=== PATIENT | male | born 1975 | race Caucasian/White ===

== ENCOUNTER 2017-01-24 19:48 | Emergency (ER) | payer MEDICAID, OTHER ==
[~2017-01-24] VITALS: Wt 163.6 kg
[~2017-01-24 19:48] MED LIST: AZIT250T94 PO
[2017-01-24] MEDS ORDERED: ONDANSETRON (ODT) 4 MG TAB ODT STA (22:13)
[2017-01-24] MEDS ORDERED: ACETAMINOPHEN 500 MG TAB PO STA (22:13)
[2017-01-24] MEDS ORDERED: ONDA4TAB8 PO (22:28)
[2017-01-24] MEDS ORDERED: CIPR500T4 PO (22:28)
[2017-01-24] MEDS ORDERED: TYL500 PO (22:29)
[2017-01-24] MEDS ORDERED: LOPE2CAP PO (22:29)
[2017-01-24] MEDS ORDERED: LIDOCAINE/MYLANTA 40 ML BTL PO ONE (22:30)
[2017-01-24] MEDS ORDERED: FAMOTIDINE 20 MG TAB PO ONE (22:30)
[2017-01-24] MEDS ORDERED: LORA-441 PO (22:52)
--- NOTE | 2017-01-25 00:39 | ERD ---
ER Documentation Chief Complaint Date/Time DATE: 01/25/17 TIME: 00:36 Chief Complaint n/v/d, fever, kaminski, cough HPI This is a 41-year-old male that presents to the ER with nausea vomiting and diarrhea that started yesterday after he had [place] food. Patient also has a headache and fevers. He denies any recent travel. Vomiting is nonbilious nonbloody. There is no blood in the diarrhea. Patient is able to drink fluids , however he is unable to eat any food. Patient does complain of generalized abdominal pain which is worse whenever he needs to vomit or have a bowel movement. ROS 12 point review of systems was done, all negative except per HPI. Medications Home Meds Active Scripts Lorazepam* (Ativan*) 0.5 Mg Tablet, 0.5 MG PO Q8, #5 TAB Prov:VILMA READ 01/24/17 Loperamide Hcl* (Imodium*) 2 Mg Capsule, 2 MG PO .WITH EACH DIARRHEA Y for DIARRHEA for 3 Days, CAP MAX 16 mg/day Prov:VILMA READ 01/24/17 Acetaminophen* (Tylenol*) 500 Mg Tab, 500 MG PO Q4H Y for MILD PAIN LEVEL 1-3 for 3 Days, TAB Prov:VILMA READ 01/24/17 Ondansetron Hcl* (Zofran*) 4 Mg Tablet, 4 MG PO Q6H for NAUSEA AND/OR VOMITING, #30 TAB Prov:VILMA READ 01/24/17 Ciprofloxacin Hcl* (Ciprofloxacin Hcl*) 500 Mg Tablet, 500 MG PO BID for 3 Days , TAB Prov:VILMA READ 01/24/17 Azithromycin* (Zithromax*) 250 Mg Tablet, 250 MG PO .ZPACK DIRECTED, #6 TAB TAKE 500 MG (2 TABS) THE FIRST DAY THEN 250 MG (1 TAB) DAYS 2-5 Prov:TAM MEHTA DO 06/23/16 Allergies Allergies: Coded Allergies: No Known Allergy (Unverified , 06/23/16) PMhx/Soc History of Surgery: No Anesthesia Reaction: No Hx Neurological Disorder: No Hx Respiratory Disorders: No Hx Cardiac Disorders: No Hx Psychiatric Problems: Yes (anxiety) Hx Miscellaneous Medical Probl: No Hx Alcohol Use: No Hx Substance Use: No Hx Tobacco Use: No Physical Exam Vitals Vital Signs Date Time Temp Pulse Resp B/P Pulse Ox O2 Delivery O2 Flow Rate FiO2 01/24/17 20:26 98.8 91 20 141/90 98 Physical Exam GENERAL: The patient is well-developed, well-nourished, in no acute distress. NECK: Cervical spine is non tender with no step off. Supple, no nuchal rigidity HEENT: Atraumatic. Conjunctivae pink, no discharge. The oropharynx is clear with no erythema or exudates and the mucosa is moist. No signs of dehydration. RESPIRATORY: Clear to auscultation bilaterally. There are no rales, wheezes or rhonchi. HEART: Regular rate and rhythm. No murmurs, clicks, rubs or gallops. ABDOMEN: Soft, nontender, nondistended. Active bowel sounds in all 4 quadrants. No rebounding or guarding. Negative McBurney point tenderness. NEUROLOGIC: Alert and oriented. SKIN: There is no rash. The skin is warm and dry. Normal capillary refill. Results 24 hrs Current Medications Medications (Trade) Dose Ordered Sig/Elisabeth Route PRN Reason Start Time Stop Time Status Last Admin Dose Admin Ondansetron HCl (Zofran Odt) 8 mg ONCE STAT ODT 01/24/17 22:13 01/24/17 22:15 DC 01/24/17 22:46 Famotidine (Pepcid) 20 mg ONCE ONCE PO 01/24/17 22:30 01/24/17 22:31 DC 01/24/17 22:47 Miscellaneous Medication (Gi Cocktail (2)) 40 ml ONCE ONCE PO 01/24/17 22:30 01/24/17 22:31 DC 01/24/17 22:47 Acetaminophen (Tylenol Tab) 1,000 mg ONCE STAT PO 01/24/17 22:13 01/24/17 22:15 DC 01/24/17 22:46 Procedures/MDM Differential Diagnosis includes but is not limited to; Acute gastroenteritis, post-tussive vomiting, small bowel obstruction, appendicitis, DKA, ICH, meningitis. This is likely viral gastroenteritis versus food poisoning. Patient appears well hydrated and successfully tolerated PO challenge. Clinical suspicion for infectious etiology such as meningitis as patient appears nontoxic. Clinical suspicion for acute abdomen is low as physical examination is benign. Plan was discussed with patient they understand agree. Patient needs to follow up with PCP within 1-2 days, or return to ER if symptoms worsen. Departure Diagnosis: Primary Impression: Nausea vomiting and diarrhea Condition: Stable Patient Instructions: Food Poisoning Or Gastroenteritis (6Y-Adult) Additional Instructions: Call your primary care doctor TOMORROW for an appointment during the next 1-2 days.See the doctor sooner or return here if your condition worsens before your appointment time. VILMA READ Jan 25, 2017 00:39
== END 2017-01-24 23:10 | disposition home or self-care (01) ==
LOC: FTE 19:48
DX: R11.2 Nausea with vomiting, unspecified (principal); R19.7 Diarrhea, unspecified
CPT/HCPCS: 99284

== ENCOUNTER 2017-08-19 23:43 | Emergency (ER) | payer SELFPAY ==
[~2017-08-19] VITALS: Ht 170.2 cm; Wt 162.5 kg
[~2017-08-19 23:43] MED LIST changes: +CIPR500T4 PO; +LOPE2CAP PO; +LORA-441 PO; +ONDA4TAB8 PO; +TYL500 PO
[2017-08-19 23:45] VITALS: Ht 170.2 cm; Wt 162.5 kg
[2017-08-19] MEDS ORDERED: HALOPERIDOL 5 MG INJ IM STA (23:48)
[2017-08-20] MEDS ORDERED: DIPHENHYDRAMINE 50 MG INJ IM ONE
[2017-08-20] MEDS ORDERED: LORAZEPAM 2 MG INJ IM ONE
[2017-08-20] MEDS ORDERED: IBUPROFEN 600 MG TAB PO ONE (00:30)
--- NOTE | 2017-08-20 02:16 | RADRPT ---
PROCEDURE: XR Chest. CLINICAL INDICATION: Cough. TECHNIQUE: Single frontal chest x-ray. COMPARISON: 06/23/2016 FINDINGS: The cardiomediastinal silhouette is unremarkable. There is no congestive heart failure.. There is m ild right basilar probable atelectasis.. There is no pleural effusion. There is no pneumothorax. The osseous structures are unremarkable. IMPRESSION: Right basilar probable atelectasis. RPTAT: HMVK .Chris Adkins MD, Date Time Electronically viewed and signed by .Chris Adkins MD, on 08/20/2017 02:16 .K/
--- NOTE | 2017-08-20 02:18 | RADRPT ---
PROCEDURE: XR right Femur. CLINICAL INDICATION: Pain. TECHNIQUE: Four views of the right femur were obtained. COMPARISON: No prior studies are available for comparison. FINDINGS: There is no fracture. Joint relationships are maintained. Bone mineralization is within normal leong its. Soft tissues are unremarkable. IMPRESSION: 1. No acute abnormality. RPTAT: HMVK .Chris Adkins MD, MD Date Time Electronically viewed and signed by .Chris Adkins MD, on 08/20/2017 02:17 .K/
--- NOTE | 2017-08-20 02:20 | RADRPT ---
PROCEDURE: XR Lumbar Spine. CLINICAL INDICATION: Pain. TECHNIQUE: Three views of the lumbar spine are available for review COMPARISON: None available FINDINGS: No fracture is identified. There is maintenance of height of the vertebral bodies. Alignment is ma intained; there is no spondylolisthesis. Pedicles are intact. There is mild diffuse endplate hyper trophic changes lower thoracic spine and upper lumbar spine. Bony mineralization is within normal l imits. Soft tissues are unremarkable. IMPRESSION: Mild endplate degenerative changes. RPTAT: HMVK .Chris Adkins MD, Date Time Electronically viewed and signed by .Chris Adkins MD, on 08/20/2017 02:19 .K/
[2017-08-20] MEDS ORDERED: PROM6.25 PO (02:27)
[2017-08-20] MEDS ORDERED: AZIT250T94 PO (02:28)
[2017-08-20] MEDS ORDERED: IBUP-1542 PO (02:28)
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
[2017-08-20] MEDS ORDERED: AZITHROMYCIN 250 MG TAB PO ONE (03:00)
== END 2017-08-20 02:59 | disposition home or self-care (01) ==
LOC: E/R 23:43
DX: J20.9 Acute bronchitis, unspecified (principal)
CPT/HCPCS: 71010; 72100; 73550

== ENCOUNTER 2017-09-23 17:19 | Emergency (ER) | payer MEDICAID ==
[~2017-09-23] VITALS: Ht 167.6 cm; Wt 161.0 kg
[~2017-09-23 17:19] MED LIST changes: +IBUP-1542 PO; +PROM6.25 PO
[2017-09-23 17:31] VITALS: Ht 167.6 cm; Wt 161.0 kg
[2017-09-23] MEDS ORDERED: HYDROCODONE/APAP (5/325) TAB PO ONE (19:30)
[2017-09-23 20:09] LABS: BASOPHIL # 0.1 10^3/ul (0.0-0.1); BASOPHILS % 0.4 % (0.0-2.0); EOSINOPHILS # 0.2 10^3/ul (0.0-0.5); HEMATOCRIT 43.3 % (42.0-52.0); HEMOGLOBIN 14.8 g/dl (14.0-18.0); LYMPHOCYTES # 3.6 10^3/ul (0.8-2.9); LYMPHOCYTES % 32.2 % (15.0-51.0); MEAN CORPUSCULAR HEMOGLOBIN 30.5 pg (29.0-33.0); MEAN CORPUSCULAR HGB CONC 34.2 g/dl (32.0-37.0); MEAN CORPUSCULAR VOLUME 89.3 fl (82.0-101.0); MEAN PLATELET VOLUME 10.3 fl (7.4-10.4); MONOCYTE # 1.1 10^3/ul (0.3-0.9); NEUTROPHIL # 6.2 10^3/ul (1.6-7.5); NEUTROPHILS % 55.1 % (39.0-77.0); PLATELET COUNT 255 10^3/UL (140-415); RED BLOOD COUNT 4.85 10^6/ul (4.70-6.10); RED CELL DISTRIBUTION WIDTH 12.5 % (11.5-14.5); WHITE BLOOD COUNT 11.2 10^3/ul (4.8-10.8)
[2017-09-23 20:12] LABS: ADD UMIC YES; UR ASCORBIC ACID NEGATIVE (NEGATIVE); UR BILIRUBIN (Dip) NEGATIVE (NEGATIVE); UR BLOOD (Dip) NEGATIVE (NEGATIVE); UR CLARITY CLEAR (CLEAR); UR COLOR YELLOW (YELLOW); UR GLUCOSE (Dip) NEGATIVE (NEGATIVE); UR KETONES (Dip) NEGATIVE (NEGATIVE); UR LEUKOCYTE ESTERASE (Dip) TRACE Leu/ul (NEGATIVE); UR MUCUS FEW /HPF (NONE SEEN); UR NITRITE (Dip) NEGATIVE (NEGATIVE); UR RBC 1 /HPF (0-5); UR SPECIFIC GRAVITY (Dip) 1.024 (1.003-1.030); UR TOTAL PROTEIN (Dip) NEGATIVE (NEGATIVE); UR UROBILINOGEN (Dip) 1+ mg/dL (NEGATIVE)
--- NOTE | 2017-09-23 20:17 | ERD ---
ER Documentation Chief Complaint Chief Complaint COUGH X 1 MONTH, NEW ONSET LEFT POSTERIOR RIB PAIN ON INSPIRATION HPI 41-year-old male presenting with a chief complaints of cough 1 week that resolved 2 days ago. Patient is also complaining of left flank pain. Worse with touching it. Dull and rated as 8 out of 10 when touching. Has not taken any medications. Denies medical conditions. Patient has no other complaints and describes no other associated manifestations. Nursing notes have been reviewed and are consistent with history given. ROS All systems reviewed and are negative except as per history of present illness. Medications Home Meds Active Scripts Ibuprofen* (Motrin*) 600 Mg Tab, 600 MG PO Q6, #30 TAB Prov:VILMA READ 08/20/17 Azithromycin* (Zithromax*) 250 Mg Tablet, 250 MG PO .ZPACK DIRECTED, #6 TAB TAKE 500 MG (2 TABS) THE FIRST DAY THEN 250 MG (1 TAB) DAYS 2-5 Prov:VILMA READ 08/20/17 Promethazine Hcl* (Promethazine Hcl* Syrup) 6.25 Mg/5 Ml Syrup, 10 ML PO Q6H Y for COUGH, #120 ML Prov:VILMA READ 08/20/17 Lorazepam* (Ativan*) 0.5 Mg Tablet, 0.5 MG PO Q8, #5 TAB Prov:VILMA READ 01/24/17 Loperamide Hcl* (Imodium*) 2 Mg Capsule, 2 MG PO .WITH EACH DIARRHEA Y for DIARRHEA for 3 Days, CAP MAX 16 mg/day Prov:VILMA READ 01/24/17 Acetaminophen* (Tylenol*) 500 Mg Tab, 500 MG PO Q4H Y for MILD PAIN LEVEL 1-3 for 3 Days, TAB Prov:VILMA READ 01/24/17 Ondansetron Hcl* (Zofran*) 4 Mg Tablet, 4 MG PO Q6H for NAUSEA AND/OR VOMITING, #30 TAB Prov:VILMA READ 01/24/17 Ciprofloxacin Hcl* (Ciprofloxacin Hcl*) 500 Mg Tablet, 500 MG PO BID for 3 Days , TAB Prov:VILMA READ 01/24/17 Azithromycin* (Zithromax*) 250 Mg Tablet, 250 MG PO .ZPACK DIRECTED, #6 TAB TAKE 500 MG (2 TABS) THE FIRST DAY THEN 250 MG (1 TAB) DAYS 2-5 Prov:TAM MEHTA DO 06/23/16 Allergies Allergies: Coded Allergies: No Known Allergy (Unverified , 06/23/16) PMhx/Soc History of Surgery: No Anesthesia Reaction: No Hx Neurological Disorder: No Hx Respiratory Disorders: No Hx Cardiac Disorders: No Hx Psychiatric Problems: Yes (anxiety) Hx Miscellaneous Medical Probl: No Hx Alcohol Use: No Hx Substance Use: No Hx Tobacco Use: No Smoking Status: Never smoker Physical Exam Vitals Vital Signs Date Time Temp Pulse Resp B/P Pulse Ox O2 Delivery O2 Flow Rate FiO2 09/23/17 21:46 98.9 88 20 133/78 98 09/23/17 17:31 99.3 94 20 135/88 98 Physical Exam Const: [] Head: Atraumatic Eyes: Normal Conjunctiva ENT: Normal External Ears, Nose and Mouth. Neck: Full range of motion..~ No meningismus. Resp: Clear to auscultation bilaterally Cardio: Regular rate and rhythm, no murmurs Abd: Soft, non tender, non distended. Normal bowel sounds Skin: No petechiae or rashes Back: No midline or flank tenderness Ext: No cyanosis, or edema Neur: Awake and alert Psych: Normal Mood and Affect Result Diagram: 09/23/17191909/23/171919 Results 24 hrs Laboratory Tests Test 09/23/17 19:20 09/23/17 19:25 White Blood Count 11.210^3/ul Red Blood Count 4.8510^6/ul Hemoglobin 14.8g/dl Hematocrit 43.3% Mean Corpuscular Volume 89.3fl Mean Corpuscular Hemoglobin 30.5pg Mean Corpuscular Hemoglobin Concent 34.2g/dl Red Cell Distribution Width 12.5% Platelet Count 32719^3/UL Mean Platelet Volume 10.3fl Neutrophils % 55.1% Lymphocytes % 32.2% Monocytes % 10.0% Eosinophils % 2.0% Basophils % 0.4% Nucleated Red Blood Cells % 0.0/100WBC Neutrophils # 6.210^3/ul Lymphocytes # 3.610^3/ul Monocytes # 1.110^3/ul Eosinophils # 0.210^3/ul Basophils # 0.110^3/ul Nucleated Red Blood Cells # 0.010^3/ul Prothrombin Time 13.0Sec Prothrombin Time Ratio 1.0 INR International Normalized Ratio 0.98 Activated Partial Thromboplast Time 28.6Sec Sodium Level 144mmol/L Potassium Level 3.9mmol/L Chloride Level 108mmol/L Carbon Dioxide Level 28mmol/L Anion Gap 12 Blood Urea Nitrogen 16mg/dl Creatinine 0.70mg/dl Glucose Level 86mg/dl Calcium Level 9.1mg/dl Total Bilirubin 0.2mg/dl Direct Bilirubin 0.00mg/dl Indirect Bilirubin 0.2mg/dl Aspartate Amino Transf (AST/SGOT) 36IU/L Alanine Aminotransferase (ALT/SGPT) 43IU/L Alkaline Phosphatase 102IU/L Total Protein 8.3g/dl Albumin 4.1g/dl Globulin 4.20g/dl Albumin/Globulin Ratio 0.97 Lipase 78U/L Urine Color YELLOW Urine Clarity CLEAR Urine pH 8.0 Urine Specific [place] 1.024 Urine Ketones NEGATIVEmg/dL Urine Nitrite NEGATIVEmg/dL Urine Bilirubin NEGATIVEmg/dL Urine Urobilinogen 1+mg/dL Urine Leukocyte Esterase TRACELeu/ul Urine Microscopic RBC 1/HPF Urine Microscopic WBC 1/HPF Urine Mucus FEW/HPF Urine Hemoglobin NEGATIVEmg/dL Urine Glucose NEGATIVEmg/dL Urine Total Protein NEGATIVEmg/dl Current Medications Medications (Trade) Dose Ordered Sig/Elisabeth Route PRN Reason Start Time Stop Time Status Last Admin Dose Admin Acetaminophen/ Hydrocodone Bitart ([place] (5/325)) 1 tab ONCE ONCE PO 09/23/17 19:30 09/23/17 19:31 DC 09/23/17 19:34 Morphine Sulfate (morphine) 4 mg ONCE STAT IM 09/23/17 20:24 09/23/17 20:26 DC 09/23/17 20:35 Procedures/MDM Morbidly obese 41-year-old male with no past medical history presents with a chief complaints of Cough and left-sided flank pain. Has not taken any medications to relieve it. Physical exam was largely unremarkable due to size. Tenderness palpation over the left flank. Labs were unremarkable. Pt has 1+ leuks but no dysuria, frequency, suprapubic tenderness, or DC. CT of abd was obtained and read as unremarkable for acute pathology. CXR unremarkable. Most likely dx is abd pain vs acute bronchitis. I have no suspicion for Pyelonephritis, SBI, or acute abdomen. Will dc with return precautions. Departure Diagnosis: Primary Impression: Cough Condition: Stable Additional Instructions: Follow up in 2-3 days with PCP. Return if sxs worsen or change. LEONIDAS BOWLES PA-C Sep 23, 2017 20:17
[2017-09-23 20:20] LABS: INR 0.98
[2017-09-23 20:21] LABS: PARTIAL THROMBOPLASTIN TIME 28.6 Sec (25.0-35.0)
[2017-09-23] MEDS ORDERED: morphine 4 MG/ML VIAL IM STA (20:24)
--- NOTE | 2017-09-23 20:24 | RADRPT ---
PROCEDURE: XR Chest. CLINICAL INDICATION: cough TECHNIQUE: PA and Lateral views of the chest were obtained. COMPARISON: Chest radiograph dated June 23, 2016. FINDINGS: The cardiomediastinal silhouette is within normal limits. The lungs are clear. No signs of pleural f luid or pneumothorax are seen. The osseous structures and soft tissues are unremarkable. IMPRESSION: 1. No acute cardiopulmonary disease. RPTAT:AAJJ Chinedu Atkinson Physician Date Time Electronically viewed and signed by Chinedu Atkinson Physician on 09/23/2017 20:24 QL/
[2017-09-23 20:25] LABS: ALBUMIN 4.1 g/dl (3.3-4.9); ALBUMIN/GLOBULIN RATIO 0.97; BILIRUBIN,INDIRECT 0.2 mg/dl (0-1.1); BILIRUBIN,TOTAL 0.2 mg/dl (0.2-1.3); CALCIUM 9.1 mg/dl (8.4-10.2); CREATININE 0.7 mg/dl (0.61-1.24); POTASSIUM 3.9 mmol/L (3.5-5.1); TOTAL PROTEIN 8.3 g/dl (6.1-8.1)
--- NOTE | 2017-09-23 21:25 | RADRPT ---
PROCEDURE: CT Abdomen and Pelvis without contrast CLINICAL INDICATION: Abdominal pain TECHNIQUE: Transaxial images were obtained through the abdomen and pelvis on a multi-slice scanner without the intravenous contrast administration. No oral contrast had previously been given. Sagit amy and coronal re-formations were subsequently reconstructed. One or more of the following dose reduction techniques were used: - Automated exposure control. - Adjustment of the mA and/or kV according to patient size. - Use of iterative reconstruction technique. Radiation dose: CTDIvol = 23.69 mGy; DLP = 1374.05 mGy-cm. COMPARISON: No prior studies are available for comparison. FINDINGS: Lung bases: The visualized lung bases appear unremarkable. Liver: Normal in size but appears diffusely fatty infiltrated. No focal lesion is evident.. There is no focal lesion. Gallbladder: The wall is not thickened. No radiopaque stones are identified. Bile ducts: The intra and extrahepatic bile ducts are normal in caliber. Pancreas: Appears normal with no mass or inflammation evident. Spleen: Normal in size with no focal lesion. Adrenals: Normal with no mass identified. Kidneys, ureters and bladder: The kidneys are normal in size and there is no mass, pathological calc ification, or hydronephrosis evident. There is no perinephric stranding. The ureters are normal in c aliber and no ureteroliths are identified. The bladder is suboptimally distended but otherwise unrem arkable. Reproductive organs: Unremarkable. Stomach and bowel: The stomach appears unremarkable. There are a few scattered colonic diverticuli b ut there is no evidence of bowel obstruction or inflammation. Appendix: The vermiform appendix is not discretely identified. Peritoneum: No free intraperitoneal fluid or air is identified. Small fat containing inguinal hernia s are evident bilaterally. Aorta: Normal in caliber with no aneurysmal dilatation. IVC: Unremarkable. Lymph nodes: A few bilateral inguinal nodes are evident up to 1.2 cm in short diameter. Osseous structures: Mild diffuse degenerative anterior spurring is seen to the spine. IMPRESSION: 1. There are a few scattered colonic diverticuli but there is no evidence of bowel obstruction or i nflammation. The vermiform appendix is not discretely identified. 2. There is no evidence of urinary outflow obstruction or ureterolithiasis with the bladder is subo ptimally distended but unremarkable. 3. Normal sized fatty infiltrated liver with no focal lesion. 4. There is no free intraperitoneal fluid or air but very small fat containing inguinal hernias are noted. 5. Minimal diffuse degenerative spine changes. 6. Bilateral inguinal nodes up to 1.2 cm in short diameter. Buck Kwok Physician Date Time Electronically viewed and signed by Buck Kwok Physician on 09/23/2017 21:25 RH/
[2017-09-23 21:46] VITALS: BP 133/78; PULSE 88; RESP 20; TEMP 98.9
== END 2017-09-23 21:47 | disposition home or self-care (01) ==
LOC: FTE 17:19
DX: R05 Cough (principal); R07.9 Chest pain, unspecified
CPT/HCPCS: 36415; 71020; 74176; 80053; 81001; 83690; 85025; 85610; 85730; 93005; 96372; J2270; Z7502; Z7610

== ENCOUNTER 2017-12-05 09:11 | Emergency (ER) | END 2017-12-05 10:34 | disposition left against medical advice (07) ==

== ENCOUNTER 2018-04-12 20:32 | Emergency (ER) | END 2018-04-12 22:50 | disposition home or self-care (01) ==